=== PATIENT | male | born 1950 | race Caucasian/White ===

== ENCOUNTER 2016-07-17 10:53 | Observation (INO) ==
[2016-07-17] MEDS ORDERED: methylPREDNISolone 125 MG/2 ML VIAL IVP ONE (11:18)
[2016-07-17] MEDS ORDERED: Ipratropium/Albuterol Neb 3 ML IH ONE (11:18)
--- NOTE | 2016-07-17 11:19 | Emergency Department Note ---
Disposition Clinical Impression: Atrial fibrillation with RVR, Elevated troponin I level, Acute on chronic respiratory failure with hypoxia, COPD exacerbation, Parotitis, acute Lung cancer Qualifiers: Laterality: left Lung location: unspecified part of lung Qualified Code(s): C34.92 - Malignant neoplasm of unspecified part of left bronchus or lung Disposition: Admitted As Inpatient Condition: Serious Time of Disposition: 14:58 Chest Pain HPI - General Chief Complaint: ED Chest Pain Stated Complaint: chest pain, TONY Time Seen by Provider: 07/17/16 11:02 Source: family Mode of arrival: ambulatory Limitations: no limitations, physical limitation Vital Signs Reviewed: Yes Nursing Notes Reviewed: Yes - History of Present Illness HPI Narrative: 66yom Male history of lung cancer, also has a history of prostate cancer, has chronic respiratory failure chronically on 4 L oxygen nasal cannula, presents with chest pain, states he is pain worse with deep breaths. Patient is on 4 L of oxygen at all time is hard to oxygen. Patient states that he has also had several episodes of hemoptysis for last few weeks. 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 He also has atrial fibrillation. Patient is very tenuous, he states that he is a DNR CCA, would be agreeable to IV medications and IV antibiotics or BiPAP if needed. Also Dr. 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 and not tolerating chemotherapy at this time, with plans to continue in the next month or so Patient reports weight loss, intermittent subjective fevers, nausea, vomiting, diarrhea, constipation he denies vomiting, hematuria dysuria hematochezia or melena Pt complaint: chest pain Onset (ago): day(s) (1) Duration: intermittent Onset: during exertion Pain Location: substernal Severity: moderate Severity scale (1-10): 10 Quality: aching Pain Radiation: none Improves with: nothing Worsens with: nothing Associated symptoms: Reports: other (Right facial swelling) Treatments prior to arrival chest pain: none - Related Data Home Medications Medication Instructions Recorded Confirmed Ipratropium/Albuterol Neb [Duoneb] 3 ml IH Q6HR 03/14/15 07/17/16 Budesonide/Formoterol 160/4.5 2 puff IH BIDR 04/17/16 07/17/16 [Symbicort 160/4.5] Oxygen 3 l .ROUTE AD 04/17/16 07/17/16 Umeclidinium [place] [Incruse 1 puff IH BID 04/17/16 07/17/16 Ellipta] Amiodarone [Cordarone] 200 mg PO DAILY 07/17/16 07/17/16 Previous Rx's Medication Instructions Recorded Magic Mouthwash 5 ml PO Q4H PRN #240 ml 12/30/15 Ondansetron HCl [Zofran] 4 mg PO Q6HR PRN #20 tablet 12/30/15 OxyCODONE ER (12 HR) [OxyCONTIN] 20 mg PO QID PRN #20 tab.er.12h 04/21/16 OxyCODONE Immed Rel [Roxicodone 5 10 mg PO Q4H PRN #24 tablet 04/21/16 MG] Rivaroxaban [Xarelto] 20 mg PO DAILY 30 Days 05/13/16 Supplies [SUPPLIES] 1 each .ROUTE DAILY #1 each 05/18/16 PredniSONE 10 mg PO DAILY #9 tablet 05/25/16 Sennosides [Senna] 8.6 mg PO DAILY #20 tablet 05/25/16 Albuterol Sulfate [Ventolin Hfa] 1 puff IH Q6H PRN #1 hfa.aer.ad 07/07/16 Allergies Allergy/AdvReac Type Severity Reaction Status Date / Time levofloxacin [From Levaquin] AdvReac Nausea Verified 07/17/16 10:58 Review of Systems: A 14 point ROS was obtained and was negative except as per below or as documented in the HPI. Constitutional: Denies: fever, chills, weakness, weight change Eyes: Denies: eye pain, eye discharge, vision change ENT: Denies: ear pain, throat pain, hearing loss, epistaxis, congestion, Cardiovascular: chest pain Denies: , palpitations, dyspnea on exertion, edema, syncope Respiratory: cough, dyspnea, wheezes, hemoptysis,Denies: stridor Gastrointestinal: Denies: abdominal pain, nausea, vomiting. diarrhea, constipation, hematemesis, hematochezia Genitourinary: Denies: urgency, dysuria, frequency, hematuria Musculoskeletal: Denies: back pain, neck pain, arthralgia, myalgia Integumentary: Denies: rash, abrasion, lesions Neurological: Denies: headache, weakness, numbness, paresthesias, confusion, abnormal gait Psychiatric: Denies: anxiety, depression, suicidal thoughts, homicidal thoughts , Endocrine: Denies: fatigue Hematological/Lymphatic: Denies: easy bleeding, easy bruising Allergic/Immunologic: Denies: facial swelling, urticaria All systems ED: reviewed and negative except as stated. Chest Pain PMH - Past Medical History Medical history: Reports: arthritis, atrial fibrillation, cancer, COPD, GERD, hyperlipidemia, hypertension, malignancy, osteoporosis, peripheral artery disease, syncope, other Surgical history: Reports: cancer surgery, other Psychiatric history: Reports: no psych history - Social History Smoking Status: Former smoker Alcohol use: Reports: none Drug use: Reports: none Physical Exam General: Thin cachectic male in mild respiratory distress Head: NCAT, no lesions Eyes: sclera anicteric, conjunctiva normal, PERRLA bilaterally, EOMI Bilaterally Ears: normal inspection, external ear wnl Nose: nasal septum nondeviated, sinuses nontender Throat: good dentition, mucous membranes moist Face: Mild right parotid swelling with no palpable sialolith Neck: no lymphadenopathy, trachea midline no deviation, no JVD Resp: Coarse breath sounds bilaterally, diminished sounds of the left greater than right CV: Tachycardia normal S1 and S2, no m/g/r, Pulses +2 Rad, +2 DP/PT Abdomen: Soft, NTND, no hepatosplenomegaly, no hernias, Negative Rovsing's sign , Negative Jurado's sign Back: normal inspection, no tenderness to palpation, Negative CVA tenderness bilaterally Neuro: A&O3, CN II-XII grossly intact bilaterally, no motor or sensory deficits bilaterally, gait normal, GCS 15 [id number] Ext: normal inspection, symmetric Active and Passive ROM UE and LE bilaterally , no pedal edema bilaterally Psych: normal mood, normal affect Skin: No rashes, skin warm, dry, intact - General Limitations: physical limitation General appearance: alert, in no apparent distress Course Course Narrative: 66-year-old male anticoagulated on Xarelto, presents with hemoptysis and chest pain, concern for PE also concern for angina, no evidence of ST segment changes on his EKG, incomplete right bundle branch block and sinus tachycardia, will do chest pain workup, CT chest indicated. - Reevaluation(s) Reevaluation #1: CTA is ordered given good renal function, he does have a troponin of 0.04, he is compensated for respiratory acidosis on his blood gas, is currently sided on his home oxygen of 4 L. Time: 12:11 Reevaluation #2: Admitted to Dr Carrion for Afib Rvr fluid blus holding antiarrhthmics at hospitalist request prior to fluid bolus, no anticoagulation as well given on Xarelto with hemoptysis, A. fib RVR elevated troponin and chest pain. In stable condition currently heart rate 150s, blood pressure 108/70 patient's main complaint is requiring home pain medication and did order his oxycodone. Time: 15:04 Vital Signs Temperature 98.3 F 07/17/16 10:58 Pulse Rate 96 07/17/16 10:58 Respiratory Rate 18 07/17/16 10:58 Blood Pressure 106/75 07/17/16 10:58 O2 Sat by Pulse Oximetry 100 07/17/16 10:58 Temperature 98.3 F 07/17/16 10:58 Pulse Rate 127 07/17/16 15:32 Respiratory Rate 18 07/17/16 15:44 Blood Pressure 93/64 07/17/16 15:44 O2 Sat by Pulse Oximetry 99 07/17/16 15:32 Oxygen Delivery Oxygen Delivery Nasal Cannula Chest Pain - MDM Narrative Medical decision making narrative: 66-year-old male with A. fib RVR, cancer history, elevated troponin, admitted for chest pain rule out as well as trending troponins and rate control. - Differential Diagnosis Likely: pneumothorax, unstable angina pectoris, atypical chest pain, st elevation myocardial infraction, chest pain - Medical Records Medical records reviewed: Yes I reviewed the patient's medical records. - Lab Data Lab results reviewed: Yes I reviewed the patient's lab results. Result diagrams: 07/17/16 11:24 07/17/16 11:24 Lab Results 07/17/16 07/17/16 07/17/16 Range/Units 11:24 11:24 11:24 WBC (4.3-11.1) K/mcL RBC (4.19-5.50) M/mcL Hgb (12.9-16.9) g/dL Hct (37.5-50.1) % MCV (83.0-100.0) fL MCH (28.0-33.3) pg MCHC (31.6-35.5) g/dL RDW (11.5-14.5) % Plt Count (140-400) K/mcL MPV (9.4-12.4) fL Immature Gran % (0-4) % Seg Neutrophils % % Lymphocytes % % Monocytes % % Eosinophils % % Basophils % % Neutrophils # (1.6-8.9) K/mcL Lymphocytes # (0.6-4.6) K/mcL Monocytes # (0.0-1.3) K/mcL Eosinophils # (0.0-0.6) K/mcL Basophils # (0.0-0.2) K/mcL PT 16.0 H (9.4-12.1) Seconds INR 1.5 APTT 32.1 (26.0-36.0) Seconds ABG pH (7.32-7.45) pH Units ABG pCO2 (35-45) mmHg ABG pO2 (85-104) mmHg ABG HCO3 (21-27) mEQ/L ABG Total CO2 (20-26) mEq/L ABG O2 Saturation (95-98) % ABG Base Excess (-2.0 to 3.0) mEq/L Blood Gas Modality Inspired O2 % Sodium (136-145) mEq/L Potassium (3.5-4.5) mEq/L Chloride (98-109) mEq/L Carbon Dioxide (19-29) mEq/L BUN (8-26) mg/dL Creatinine (0.72-1.25) mg/dL Est GFR ( Amer) (> 60) Est GFR (Non-Af Amer) (> 60) BUN/Creatinine Ratio (6-26) Glucose (70-99) mg/dL Calculated Osmolality (280-300) Calcium (8.6-10.8) mg/dL Total Bilirubin 0.5 (0.2-1.2) mg/dL Direct Bilirubin 0.2 (0.0-0.5) mg/dL Indirect Bilirubin 0.3 (0.0-1.2) mg/dL AST 16 (5-34) Units/L ALT 12 (0-55) Units/L Alkaline Phosphatase 103 (38-126) Units/L Troponin I (0-0.03) ng/mL B-Natriuretic Peptide 98 (0-100) pg/mL Serum Total Protein 7.5 (6.0-8.3) g/dL Albumin 3.1 L (3.5-5.0) g/dL Globulin 4.4 H (2.4-3.5) g/dL Albumin/Globulin Ratio 0.7 L (1.1-2.2) Lipase 9 (8-78) Units/L 07/17/16 07/17/16 07/17/16 Range/Units 11:24 11:24 11:24 WBC 8.7 (4.3-11.1) K/mcL RBC 3.58 L (4.19-5.50) M/mcL Hgb 11.2 L (12.9-16.9) g/dL Hct 34.5 L (37.5-50.1) % MCV 96.4 (83.0-100.0) fL MCH 31.3 (28.0-33.3) pg MCHC 32.5 (31.6-35.5) g/dL RDW 14.7 H (11.5-14.5) % Plt Count 359 (140-400) K/mcL MPV 8.6 L (9.4-12.4) fL Immature Gran % 0.5 (0-4) % Seg Neutrophils % 79.3 % Lymphocytes % 7.3 % Monocytes % 10.9 % Eosinophils % 1.7 % Basophils % 0.3 % Neutrophils # 6.9 (1.6-8.9) K/mcL Lymphocytes # 0.6 (0.6-4.6) K/mcL Monocytes # 1.0 (0.0-1.3) K/mcL Eosinophils # 0.2 (0.0-0.6) K/mcL Basophils # 0.0 (0.0-0.2) K/mcL PT (9.4-12.1) Seconds INR APTT (26.0-36.0) Seconds ABG pH (7.32-7.45) pH Units ABG pCO2 (35-45) mmHg ABG pO2 (85-104) mmHg ABG HCO3 (21-27) mEQ/L ABG Total CO2 (20-26) mEq/L ABG O2 Saturation (95-98) % ABG Base Excess (-2.0 to 3.0) mEq/L Blood Gas Modality Inspired O2 % Sodium 135 L (136-145) mEq/L Potassium 4.3 (3.5-4.5) mEq/L Chloride 95 L (98-109) mEq/L Carbon Dioxide 27 (19-29) mEq/L BUN 11 (8-26) mg/dL Creatinine 0.78 (0.72-1.25) mg/dL Est GFR ( Amer) > 60 (> 60) Est GFR (Non-Af Amer) > 60 (> 60) BUN/Creatinine Ratio 14 (6-26) Glucose 83 (70-99) mg/dL Calculated Osmolality 279 L (280-300) Calcium 9.5 (8.6-10.8) mg/dL Total Bilirubin (0.2-1.2) mg/dL Direct Bilirubin (0.0-0.5) mg/dL Indirect Bilirubin (0.0-1.2) mg/dL AST (5-34) Units/L ALT (0-55) Units/L Alkaline Phosphatase (38-126) Units/L Troponin I 0.04 H* (0-0.03) ng/mL B-Natriuretic Peptide (0-100) pg/mL Serum Total Protein (6.0-8.3) g/dL Albumin (3.5-5.0) g/dL Globulin (2.4-3.5) g/dL Albumin/Globulin Ratio (1.1-2.2) Lipase (8-78) Units/L 07/17/16 Range/Units 11:40 WBC (4.3-11.1) K/mcL RBC (4.19-5.50) M/mcL Hgb (12.9-16.9) g/dL Hct (37.5-50.1) % MCV (83.0-100.0) fL MCH (28.0-33.3) pg MCHC (31.6-35.5) g/dL RDW (11.5-14.5) % Plt Count (140-400) K/mcL MPV (9.4-12.4) fL Immature Gran % (0-4) % Seg Neutrophils % % Lymphocytes % % Monocytes % % Eosinophils % % Basophils % % Neutrophils # (1.6-8.9) K/mcL Lymphocytes # (0.6-4.6) K/mcL Monocytes # (0.0-1.3) K/mcL Eosinophils # (0.0-0.6) K/mcL Basophils # (0.0-0.2) K/mcL PT (9.4-12.1) Seconds INR APTT (26.0-36.0) Seconds ABG pH 7.44 (7.32-7.45) pH Units ABG pCO2 50 H (35-45) mmHg ABG pO2 137 H (85-104) mmHg ABG HCO3 34.0 H (21-27) mEQ/L ABG Total CO2 35.5 H (20-26) mEq/L ABG O2 Saturation 99 H (95-98) % ABG Base Excess 8.6 H (-2.0 to 3.0) mEq/L Blood Gas Modality HFNC Inspired O2 52 % Sodium (136-145) mEq/L Potassium (3.5-4.5) mEq/L Chloride (98-109) mEq/L Carbon Dioxide (19-29) mEq/L BUN (8-26) mg/dL Creatinine (0.72-1.25) mg/dL Est GFR ( Amer) (> 60) Est GFR (Non-Af Amer) (> 60) BUN/Creatinine Ratio (6-26) Glucose (70-99) mg/dL Calculated Osmolality (280-300) Calcium (8.6-10.8) mg/dL Total Bilirubin (0.2-1.2) mg/dL Direct Bilirubin (0.0-0.5) mg/dL Indirect Bilirubin (0.0-1.2) mg/dL AST (5-34) Units/L ALT (0-55) Units/L Alkaline Phosphatase (38-126) Units/L Troponin I (0-0.03) ng/mL B-Natriuretic Peptide (0-100) pg/mL Serum Total Protein (6.0-8.3) g/dL Albumin (3.5-5.0) g/dL Globulin (2.4-3.5) g/dL Albumin/Globulin Ratio (1.1-2.2) Lipase (8-78) Units/L - Radiology Data Radiology results reviewed: Yes I reviewed the patient's radiology results. Chest X-Ray 07/17/16 11:10 IMPRESSION: Stable chest with perihilar opacity/scarring. Chronic interstitial lung changes, stable. D/ / Ozzie Gracia MD / Ozzie Gracia MD Interpreting Provider: Ozzie Gracia MD Chest CTA 07/17/16 12:04 IMPRESSION: 1. No evidence of pulmonary embolism or other acute abnormality in the chest. 2. 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 3. Small left pleural effusion. D/ / Masoud Rivera MD / Masoud Rivera MD Interpreting Provider: Masoud Rivera MD - EKG Data EKG attestation: Yes I reviewed and interpreted this EKG. EKG shows normal: sinus rhythm (97 bpm NV 160 QRS 116 QTC 397 nauseous and elevations or depressions) [place]/QRS: RBBB Interpretation: no acute changes, unchanged when compared to prior tracing (date ) (Unchanged when compared to previous EKG on ) - Core Measures AMI Core Measures Followed: No Measure Exclusions: contraindicated (On Xarelto, with Hmeoptysis) Heart Score - Score History: Slightly Suspicious EKG: Normal Age: 45-65 Risk Factors: Equal/Greater than 3 risk factor or history of atherosclerotic disease Troponin: Less than normal limit HEART Score Total: 3 Attestation Statement - Attestation Attestation: I examined this patient and my medical decision-making was reviewed with the CLINIC CLERK/PA/Advanced Practice Nurse/Resident Physician. I agree with the documented findings, disposition and treatment plan as described except to the extent set forth below. 66-year-old male presents ED because of chest pain, palpitations, dyspnea and right-sided facial swelling. Chest pain and dyspnea began yesterday and is having increasing swelling of the right face today. No associated fever. Does complain of hemoptysis. Patient does have history of lung cancer as well as non -metastatic prostate cancer. Currently undergoing treatments but no treatment for the last 7 days. He has had a cough slightly productive. No abdominal pain or vomiting. No recent trauma. No recent change in medications. History of atrial fibrillation as well as DVT of the right upper extremity. Currently on Xarelto Patient is intermittently tachycardic and appears uncomfortable. Oropharynx extremities warm and dry. Neck is supple trachea midline. No JVD. Chest scattered inspiratory rhonchi. No focal wheezing. No focal consolidation. Left anterior chest wall is tender to palpation. Cardiac exam regular with occasional ectopy. Abdomen soft nondistended and nontender. Extremities warm and dry. No asymmetric edema. He does have mildly painful swelling of the right parotid with overlying erythema consistent with acute parotitis. Stensen' s duct was identified and I was not able to identify any purulent drainage or any stones within the duct. Patient had periods of atrial fibrillation with rapid ventricular response with rate running up to as high as 160. This was intermittent and he reverted back to normal sinus rhythm. CT was chest was negative for pulmonary embolism. He has mild elevation of his troponin PCO2 is chronically elevated Erythema over the right parotid seemed to improve during his time in the ED. After IV fluids and his heart rate improved and he had fewer episodes of atrial fibrillation. He is admitted for ongoing IV hydration. He will continue with cardiac monitoring, serial troponins, treatment of his pain The high probability of a clinically significant, sudden or life threatening deterioration of the [cardiopulmonary] system(s) required my full and direct attention, intervention and personal management. The aggregate critical care time was [35] minutes. This time is in addition to time spent performing reported procedures but includes the following: [x] Data Review and interpretation [x] Patient assessment and monitoring of vital signs [x] Documentation [x] Medication orders and management
[2016-07-17 11:32] LABS: Basophils % 0.3 %; Eosinophils # 0.2 K/mcL (0.0-0.6); Eosinophils % 1.7 %; Hematocrit 34.5 % (37.5-50.1); Hemoglobin 11.2 g/dL (12.9-16.9); Immature Granulocytes % 0.5 % (0-4); Lymphocytes # 0.6 K/mcL (0.6-4.6); Lymphocytes % 7.3 %; Mean Corpuscular HGB Conc 32.5 g/dL (31.6-35.5); Mean Corpuscular Hemoglobin 31.3 pg (28.0-33.3); Mean Corpuscular Volume 96.4 fL (83.0-100.0); Mean Platelet Volume 8.6 fL (9.4-12.4); Monocytes % 10.9 %; Neutrophils # 6.9 K/mcL (1.6-8.9); Platelet Count 359 K/mcL (140-400); Red Blood Count 3.58 M/mcL (4.19-5.50); Red Cell Distribution Width 14.7 % (11.5-14.5); Segmented Neutrophils % 79.3 %
[2016-07-17] MEDS ORDERED: *HR* HYDROmorphone (PF) 1 MG/ML SYRINGE IVP ONE ×2 (11:32→13:55)
[2016-07-17 11:40] LABS: INR 1.5
[2016-07-17 11:42] LABS: Activated Partial Thrombo Time 32.1 Seconds (26.0-36.0)
[2016-07-17 11:46] LABS: BUN/Creatinine Ratio 14 (6-26); Blood Urea Nitrogen 11 mg/dL (8-26); Calcium 9.5 mg/dL (8.6-10.8); Carbon Dioxide 27 mEq/L (19-29); Chloride 95 mEq/L (98-109); Glucose 83 mg/dL (70-99); Osmolality,Calculated 279 (280-300); Potassium 4.3 mEq/L (3.5-4.5); Sodium 135 mEq/L (136-145); eGFR For African Americans > 60 (> 60); eGFR For Non-African Americans > 60 (> 60)
[2016-07-17 11:47] LABS: Albumin 3.1 g/dL (3.5-5.0); Albumin/Globulin Ratio 0.7 (1.1-2.2); Bilirubin,Direct 0.2 mg/dL (0.0-0.5); Bilirubin,Indirect 0.3 mg/dL (0.0-1.2); Bilirubin,Total 0.5 mg/dL (0.2-1.2); Globulin 4.4 g/dL (2.4-3.5); Total Protein 7.5 g/dL (6.0-8.3)
[2016-07-17 11:50] LABS: ABG Base Excess 8.6 mEq/L (-2.0 to 3.0); ABG Oxygen Saturation 99 % (95-98); ABG PCO2 50 mmHg (35-45); ABG PH 7.44 pH Units (7.32-7.45); ABG PO2 137 mmHg (85-104); ABG TCO2 35.5 mEq/L (20-26)
[2016-07-17 11:52] LABS: Blood Gas FiO2 52 %
[2016-07-17] MEDS ORDERED: *HR* FentaNYL (PF) 100 MCG/2 ML VIAL IVP ONE (12:38)
[2016-07-17] MEDS ORDERED: 0.9 % Sodium Chloride 1,000 ML IV ONE (13:21)
[2016-07-17] MEDS ORDERED: Amiodarone Premix 360 MG/200 ML BAG IVC ONE (13:29)
[2016-07-17] MEDS ORDERED: Naloxone 0.4 MG/ML INJ IVP PRN (17:22)
[2016-07-17] MEDS ORDERED: Ondansetron 4 MG/2 ML VIAL IVP PRN (17:22)
[2016-07-17] MEDS ORDERED: Ondansetron ODT 4 MG TAB.RAPDIS PO PRN (17:27)
[2016-07-17] MEDS ORDERED: *HR* OxyCODONE ER (12 HR) 20 MG TABLET PO SCH ×2 (17:27→21:00)
[2016-07-17] MEDS ORDERED: Magic Mouthwash 10 ML UD Cup PO PRN (17:27)
--- NOTE | 2016-07-17 18:16 | Internal Med History&Physical ---
Date of Encounter: 07/17/16 Time of Encounter: 17:00 Assessment and Plan (1) Chest pain Current visit: Yes Status: Acute 1 patient experiencing chest pain upon inspiration. Pain is reproducible by palpation. Suspect related to cancer pain. Cardiac echo May 2016 with EF 50% with mild diastolic dysfunction CT of chest is negative for PE EKG unchanged from previous First set of cardiac troponins 0.04 we will continue to cycle 2 continue his cardiac monitoring 3 continue with pain medications 4 consult cardiology as needed (2) Elevated troponin I level Current visit: Yes Status: Acute 1 suspect this is demand ischemia from A. fib RVR. We will continue to cycle cardiac troponins 2 continuous cardiac monitoring 3 continue with amiodarone 4 consult cardiology as needed (3) Atrial fibrillation with RVR Current visit: Yes Status: Acute 1 patient presented to the ER in atrial fib RVR with heart rate of 135. He was given IV fluids and rate resolved. Return to sinus tachycardia 90-100 Patient was experiencing chest pain cardiac troponin 0.04 we will continue cycle troponins 2 patient does have history of A. fib we will continue xareltol, as well as amiodarone. Patient reports poor response to Cardizem in the past 3 we will check TSH (4) COPD (chronic obstructive pulmonary disease) Current visit: No Status: Chronic 1 weight stable no wheezing noted will continue with oxygen maintain SPO2 greater than 92% 2 continue with bronchodilators Qualifiers: COPD type: emphysema Emphysema type: unspecified Qualified Code(s): J43.9 - Emphysema, unspecified (5) Non-small cell cancer of left lung Current visit: No Status: Chronic 1 patient is being followed by Dr. Charles. His last radiation was an January chemotherapy is on hold for now. We will continue with patient's pain regime consult oncology for management (6) Prostate cancer Current visit: No Status: Chronic 1 patient is being followed by Dr. Manrique. We will continue with follow-up and consult for continued treatment. Presently the patient denies any hematuria or urinary retention. (7) Arterial occlusion Current visit: Yes Status: Acute 1 patient did have arterial occlusion and had a thrombectomy of right ulnar artery on July 02 at [facility]. He is resumed on Xarelto 20 mg (8) DVT prophylaxis Current visit: Yes Status: Acute Patient is on Xarelto Internal Medicine - H&P: HPI Admitted From: Home Plans for Post Hospital Care: Home History of present illness: Mr. Myers is a 66 year old male with past medical history of atrial fibrillation not on small cell carcinoma 1 prostate cancer anemia COPD hypertension. The GERD hyperlipidemia DVT. The patient has extensive history with lung CA as well as prostate is presently not undergoing any chemotherapy or radiation due to increased scarring. His last radiation treatment was in January and he is being reevaluated by oncology in order to resume chemotherapy. He has been experiencing hemoptysis and is on Zarontin L. He had his Route toe dose reduced and the patient developed a DVT in right arm. He had a thrombectomy in 07/02/2016 and Zarontin dose was restarted at full strength. According to patient he has been in his usual state of health and actually was feeling very well yesterday however, this morning the patient was awakened with midsternal nonradiating pain which she described as heaviness. Pain is worse upon inspiration and movement there are no relieving factors. He has chronic nausea shortness of breath and lightheadedness he also continuous oxygen at 4 L nasal cannula at home. He denies any hematuria, hematochezia or melena hematemesis fevers chills abdominal pain diarrhea vomiting or palpitations. He is brought to the emergency department for evaluation. According to ER records upon presentation the patient's heart rate was 137 sinus tachycardia. EKG revealed no ST changes and incomplete right bundle branch block which was unchanged from previous EKG. Due to history of hemoptysis and chest pain there is concerned for PE CTA was completed and it was negative his troponin was 0.04. He was given fluid bolus as well as pain medication. He was admitted for further workup and evaluation concerning chest pain. Presently the patient is a sinus tach on the monitor with a rate of 107 saturation is 97% on 4 L nasal cannula. He complains of chest heaviness which is reproducible by palpation. He is requesting his pain medication and coffee. At present time patient is hemodynamically stable Past Med Surg Social Fam HX - Past Medical History Medical history: arthritis, atrial fibrillation, cancer, COPD, GERD, hyperlipidemia, hypertension, malignancy, osteoporosis, peripheral artery disease, syncope, other Psychiatric history: no psych history - Past Surgical History Surgical History: cancer surgery, other - Social History Smoking Status: Former smoker Smokeless Tobacco Status: No Alcohol use: none Drug use: none - Family History Mother Name: Bee Campbell Age: 51 Family Member Ethnicity: Non- Living Status: Age at : 51 Cause of : colon cancer Hx Family Cardiac Disorders: Yes (FATHER OF HEART DISEASE) Hx Family Respiratory Disorders: Yes (SISTER WITH COPD/CURRENT SMOKER) Hx Family Cancer: Yes Hx Family GI Disorders: No Hx Family Endocrine Disorder: Yes (BROTHER AGE 56 OF PANCREATIC CANCER) Hx Family Neuromuscular Disorders: No Hx Family Neurologic Disorders: No Hx Family HEENT Disorders: No Hx Family Autoimmune Disorders: No Internal Medicine - H&P: Meds Ipratropium/Albuterol Neb [Duoneb] 3 ml IH Q6HR 03/14/15 [History] Magic Mouthwash 5 ml PO Q4H PRN #240 ml 12/30/15 [Rx] Ondansetron HCl [Zofran] 4 mg PO Q6HR PRN #20 tablet 12/30/15 [Rx] Budesonide/Formoterol 160/4.5 [Symbicort 160/4.5] 2 puff IH BIDR 04/17/16 [ History] Oxygen 3 l .ROUTE AD 04/17/16 [History] Umeclidinium [place] [Incruse Ellipta] 1 puff IH BID 04/17/16 [History] OxyCODONE ER (12 HR) [OxyCONTIN] 20 mg PO QID PRN #20 tab.er.12h 04/21/16 [Rx] OxyCODONE Immed Rel [Roxicodone 5 MG] 10 mg PO Q4H PRN #24 tablet 04/21/16 [Rx] Rivaroxaban [Xarelto] 20 mg PO DAILY 30 Days 05/13/16 [Rx] Supplies [SUPPLIES] 1 each .ROUTE DAILY #1 each 05/18/16 [Rx] PredniSONE 10 mg PO DAILY #9 tablet 05/25/16 [Rx] Sennosides [Senna] 8.6 mg PO DAILY #20 tablet 05/25/16 [Rx] Albuterol Sulfate [Ventolin Hfa] 1 puff IH Q6H PRN #1 hfa.aer.ad 07/07/16 [Rx] Amiodarone [Cordarone] 200 mg PO DAILY 07/17/16 [History] Allergies levofloxacin [From Levaquin] Adverse Reaction (Verified 07/17/16 10:58) Nausea All Systems PM: A 10-system review of systems was performed and is negative for pertinent findings except as documented above in the HPI. - Constitutional Constitutional: lethargy, weakness - Cardiovascular Cardiovascular ROS IM: chest pain, dyspnea, lightheadedness - Respiratory Respiratory: cough, dyspnea, hemoptysis - Gastrointestinal Gastrointestinal: constipation, nausea, no abdominal pain, no diarrhea, no hematemesis, no hematochezia, no melena, no vomiting - Genitourinary Genitourinary ROS male: urinary hesitancy - Neurological Neurological ROS: no confusion, no convulsions, no focal weakness, no numbness, no tingling, no tremor(s) - Constitutional Vitals: Temp Pulse Resp BP Pulse Ox 97.6 F 137 17 111/67 94 L 07/17/16 16:26 07/17/16 16:26 07/17/16 16:26 07/17/16 16:26 07/17/16 16:30 General appearance: Present: A&O X 3, pleasant - Head Head exam: Present: atraumatic, normocephalic - Neck Neck exam general surgery: Present: supple, trachea midline. Absent: lymphadenopathy - Respiratory Respiratory exam: Present: decreased breath sounds, CTAB. Absent: accessory muscle use, rales, rhonchi, wheezes - Cardiovascular Cardiovascular exam: Present: RRR, +S1, +S2. Absent: diastolic murmur, gallop, rubs, systolic murmur - GI/Abdominal GI/Abdominal exam: Present: normal bowel sounds, soft, no peritoneal signs. Absent: distended, tenderness - Extremities Exam Extremities exam: Present: warm, radial pulses palpable and symetrical. Absent : calf tenderness, cyanotic, pedal edema - Neurological Exam Neurological exam: Present: CN II-XII intact, oriented X3, no focal deficits. Absent: pronater drift, facial droop, speech deficit - Skin Skin exam: Present: dry, intact Internal Med - H&P Results - Labs CBC & Chem 7: 07/17/16 11:24 07/17/16 11:24 - EKG Data EKG shows normal: sinus rhythm Rate: tachycardia - EKG Data Prior EKG available for review: yes When compared to previous EKG: there is no significant change - Diagnostic Studies CT scan - chest Additional comments: Per radiology read CTA of chest no evidence of PE Chest x-ray Additional comments: Per radiology read chest x-ray stable with perihilar opacity and scarring Chronic interstitial changes
[2016-07-17] MEDS: *HR* Rivaroxaban 10 MG TABLET PO SCH (18:19)
[2016-07-17] MEDS: *HR* OxyCODONE Immed Rel 5 MG TABLET PO PRN (18:19)
[2016-07-17] MEDS: Budesonide/Formoterol 160/4.5 MDI IH SCH (21:09)
[2016-07-17] MEDS: INCRUSE ELLIPTA IH SCH (21:09)
[2016-07-17] MEDS: Ipratropium/Albuterol Neb 3 ML IH SCH ×2 (21:09→23:19)
[2016-07-18 00:50] LABS: Hematocrit 30.5 % (37.5-50.1); Hemoglobin 10.1 g/dL (12.9-16.9); Immature Granulocytes % 0.7 % (0-4); Lymphocytes # 0.3 K/mcL (0.6-4.6); Lymphocytes % 3.3 %; Mean Corpuscular HGB Conc 33.1 g/dL (31.6-35.5); Mean Corpuscular Hemoglobin 31.8 pg (28.0-33.3); Mean Corpuscular Volume 95.9 fL (83.0-100.0); Mean Platelet Volume 8.8 fL (9.4-12.4); Monocytes # 0.3 K/mcL (0.0-1.3); Monocytes % 3.7 %; Platelet Count 348 K/mcL (140-400); Red Blood Count 3.18 M/mcL (4.19-5.50); Red Cell Distribution Width 14.7 % (11.5-14.5); Segmented Neutrophils % 92.3 %
[2016-07-18 01:02] LABS: BUN/Creatinine Ratio 19 (6-26); Blood Urea Nitrogen 14 mg/dL (8-26); Carbon Dioxide 24 mEq/L (19-29); Chloride 97 mEq/L (98-109); Glucose 130 mg/dL (70-99); Osmolality,Calculated 278 (280-300); Potassium 4.6 mEq/L (3.5-4.5); Sodium 133 mEq/L (136-145); eGFR For African Americans > 60 (> 60); eGFR For Non-African Americans > 60 (> 60)
[2016-07-18] MEDS: Ipratropium/Albuterol Neb 3 ML IH SCH ×4 (04:48→22:34)
[2016-07-18] MEDS: INCRUSE ELLIPTA IH SCH (07:25)
[2016-07-18] MEDS: *HR* OxyCODONE Immed Rel 5 MG TABLET PO PRN ×2 (07:28→19:43)
[2016-07-18] MEDS ORDERED: predniSONE 10 MG TABLET PO SCH (09:00)
[2016-07-18] MEDS: Sennosides 8.6 MG TABLET PO SCH (09:17)
[2016-07-18] MEDS: *HR* Amiodarone 200 MG TABLET PO SCH (09:17)
[2016-07-18] MEDS: *HR* OxyCODONE ER (12 HR) 20 MG TABLET PO SCH ×2 (10:02→23:08)
[2016-07-18] MEDS: Budesonide/Formoterol 160/4.5 MDI IH SCH ×2 (10:28→22:34)
--- NOTE | 2016-07-18 13:11 | Electrocardiograph Report ---
[facility] Test Date: 2016-07-17 Pat Name: Tuan Myers Department: 103 Room: 2NE28 Gender: M Structures Engineer: MSC : [id number] Requested By: Sarthak Fam Order Number: [id number] Reading MD: Colton Rees MD Measurements Intervals [place] Rate: 97 P: 81 WA: 160 QRS: 34 QRSD: 116 T: 74 QT: 343 QTc: 397 Interpretive Statements SINUS RHYTHM INCOMPLETE RIGHT BUNDLE BRANCH BLOCK Electronically Signed On 07-18-16 13:10:23 EST by Colton Rees MD
--- NOTE | 2016-07-18 14:18 | Internal Med Progress Note ---
Date of Encounter: 07/18/16 Time of Encounter: 10:00 - Assessment and plan (1) COPD exacerbation Current Visit: Yes Status: Acute Assessment and plan: stat IV steroids med nebs antibiotics (2) Lung cancer Current Visit: Yes Status: Chronic Assessment and plan: squamous cell CA poor response to treatment , overall bad prognosis will consult palliative carel Qualifiers: Laterality: left Lung location: unspecified part of lung Qualified Code(s ): C34.92 - Malignant neoplasm of unspecified part of left bronchus or lung (3) Afib Current Visit: Yes Status: Chronic Assessment and plan: parosimal now on SR rate better control on xarelto for AC Qualifiers: Qualified Code(s): I48.91 - Unspecified atrial fibrillation (4) Bronchial stenosis, left Current Visit: Yes Status: Acute Assessment and plan: in left lower lung not a candidate for stent due to location high risk for pneumothorax spoke with radiology incentive pulmonary toilette (5) Prostate cancer Current Visit: No Status: Chronic Assessment and plan: stage IV . - Time Spent With Patient Greater than 35 minutes - Subjective Interval history: pt c/o sob on exertion ocassional hemoptyisis - Constitutional Vitals: Temp Pulse Resp BP Pulse Ox 97.4 F L 77 20 111/59 100 07/18/16 07:19 07/18/16 07:19 07/18/16 10:28 07/18/16 07:19 07/18/16 10:28 General appearance: Present: A&O X 3, pleasant - Respiratory Respiratory exam: Present: wheezes - Cardiovascular Cardiovascular exam: Present: RRR, +S1, +S2 - GI/Abdominal GI/Abdominal exam: Present: normal bowel sounds, no peritoneal signs - Extremities Exam Extremities exam: Present: warm, radial pulses palpable and symetrical Internal Medicine: Result - Labs CBC & Chem 7: 07/18/16 00:37 07/18/16 00:37 Labs: Short CBC 07/18/16 Range/Units 00:37 WBC 7.5 (4.3-11.1) K/mcL Hgb 10.1 L (12.9-16.9) g/dL Hct 30.5 L (37.5-50.1) % Plt Count 348 (140-400) K/mcL Neutrophils # 7.0 (1.6-8.9) K/mcL BMP 07/18/16 00:37 Sodium 133 L Potassium 4.6 H Chloride 97 L Carbon Dioxide 24 BUN 14 Creatinine 0.72 Glucose 130 H Calcium 9.0 Cardiac Enzymes 07/17/16 07/18/16 Range/Units 19:23 00:37 Troponin I 0.02 0.02 (0-0.03) ng/mL - ABG Interpretation ABG results: ABG ABG pH 7.44 pH Units (7.32-7.45) 07/17/16 11:40 ABG pCO2 50 mmHg (35-45) H 07/17/16 11:40 ABG pO2 137 mmHg (85-104) H 07/17/16 11:40 ABG O2 Saturation 99 % (95-98) H 07/17/16 11:40 PT/INR, D-dimer PT 16.0 Seconds (9.4-12.1) H 07/17/16 11:24 Consult Discharge Plan - Plan Referrals: Jonathon Cruz MD [Primary Care Provider] - 07/26/16 2:00 pm
--- NOTE | 2016-07-18 16:15 | Palliative - Consult Note ---
Date of Encounter: 07/18/16 Time of Encounter: 16:00 - Assessment and Plan (1) Cancer associated pain Current Visit: Yes Status: Acute Assessment and plan: Continue with Oxycontin and Oxycodone for breakthrough pain. This has been effective for him. (2) Constipation due to opioid therapy Current Visit: Yes Status: Acute Assessment and plan: + BM yesterday. On Senokot daily. Add MOM daily PRN which pt states works well at home for him. (3) Nausea Current Visit: Yes Status: Acute Assessment and plan: Continue Zofran PRN. States occasional nausea, but not enough he has required medication for. (4) Counseling regarding advanced care planning and goals of care Current Visit: Yes Status: Acute Assessment and plan: D/W pt and , Diane. He has POA and living will completed. DNR/DNI - I asked if this is to continue post hospitalization, they need state form, and I gave them one to review and will f.u at 1100 tomorrow. He currently has multiple DME's at home and states she has everything she needs to care for him. He is to f/u with Dr. Parker later this month to see if he can take further chemotherapy. He does not even desire to discuss hospice care and states when they did a home visit to discuss, he became anxious and she had to take him to emergency room. We did discuss how hospice can be beneficial if there is no further treatment and they can help manage him at home and keep him out of hospital. He currently is enrolled in [facility] care, and these discussions would probably be best when he is back to home environment. Will f/u tomorrow at 1100. (5) Acute on chronic respiratory failure with hypoxia Current Visit: Yes Status: Acute (6) Atrial fibrillation with RVR Current Visit: Yes Status: Acute Palliative-CN HPI - Data of Consult Consult date: 07/18/16 Requesting Physician: Nils Houston MD Primary Care Provider: Jonathon Cruz MD - Consult Narrative History of present illness: Mr. Myers is a 66 year old male with a long history of cancer, - rt lung in 2013 s/p chemo and radiation, and diagnosed Left lung in 2012. He was also diagnosed and currently has stage IV prostate cancer. He is still receiving Lupron injections for this. States Dr. Parker giving him a break from chemotherapy as he was too weak to tolerate and was going to reassess later this month. Presented with hemoptysis and chest pain. Still coughing up teaspoon amount dk red blood occasionally. He also had a recent thrombectomy rt arm as well. See Dr. Sewell as outpatient and states he has end stage lung disease as well. Upon my visit, he is talkative and in no apparent distress, however, states he becomes hypoxic with any ambulation. at home and takes total care of him. There are also 2 sons living in the house. He receives [facility] palliative care. CC: Nils Houston MD Past Med Surg Social Fam HX - Past Medical History Medical history: arthritis, atrial fibrillation, cancer, COPD, GERD, hyperlipidemia, hypertension, malignancy, osteoporosis, peripheral artery disease, syncope, other Psychiatric history: no psych history - Past Surgical History Surgical History: cancer surgery, other - Social History Smoking Status: Former smoker Smokeless Tobacco Status: No Alcohol use: none Drug use: none - Family History Mother Name: Bee Campbell Age: 51 Family Member Ethnicity: Non- Living Status: Age at : 51 Cause of : colon cancer Hx Family Cardiac Disorders: Yes (FATHER OF HEART DISEASE) Hx Family Respiratory Disorders: Yes (SISTER WITH COPD/CURRENT SMOKER) Hx Family Cancer: Yes Hx Family GI Disorders: No Hx Family Endocrine Disorder: Yes (BROTHER AGE 56 OF PANCREATIC CANCER) Hx Family Neuromuscular Disorders: No Hx Family Neurologic Disorders: No Hx Family HEENT Disorders: No Hx Family Autoimmune Disorders: No Medications and Allergies Ipratropium/Albuterol Neb [Duoneb] 3 ml IH Q6HR 03/14/15 [History] Magic Mouthwash 5 ml PO Q4H PRN #240 ml 12/30/15 [Rx] Ondansetron HCl [Zofran] 4 mg PO Q6HR PRN #20 tablet 12/30/15 [Rx] Budesonide/Formoterol 160/4.5 [Symbicort 160/4.5] 2 puff IH BIDR 04/17/16 [ History] Oxygen 3 l .ROUTE AD 04/17/16 [History] Umeclidinium [place] [Incruse Ellipta] 1 puff IH BID 04/17/16 [History] OxyCODONE ER (12 HR) [OxyCONTIN] 20 mg PO QID PRN #20 tab.er.12h 04/21/16 [Rx] OxyCODONE Immed Rel [Roxicodone 5 MG] 10 mg PO Q4H PRN #24 tablet 04/21/16 [Rx] Rivaroxaban [Xarelto] 20 mg PO DAILY 30 Days 05/13/16 [Rx] Supplies [SUPPLIES] 1 each .ROUTE DAILY #1 each 05/18/16 [Rx] PredniSONE 10 mg PO DAILY #9 tablet 05/25/16 [Rx] Sennosides [Senna] 8.6 mg PO DAILY #20 tablet 05/25/16 [Rx] Albuterol Sulfate [Ventolin Hfa] 1 puff IH Q6H PRN #1 hfa.aer.ad 07/07/16 [Rx] Amiodarone [Cordarone] 200 mg PO DAILY 07/17/16 [History] Allergies levofloxacin [From Levaquin] Adverse Reaction (Verified 07/17/16 10:58) Nausea Review of systems: Weakness, dyspnea on exertion, chronic back pain, hemoptysis, constipation Palliative Care-Exam - Constitutional Vitals: Temp Pulse Resp BP Pulse Ox 98.8 F 76 16 110/59 98 07/18/16 15:42 07/18/16 15:42 07/18/16 15:42 07/18/16 15:42 07/18/16 15:42 General appearance: Present: no acute distress - Head Head Exam: Present: normal inspection, normocephalic - Eye Eye exam: Present: normal appearance, PERRL - Expanded Respiratory Exam Location: decreased breath sounds: Left, Right, Lower, rhonchi: Right, Upper - Cardiovascular Cardiovascular exam: Present: irregular rhythm - GI/Abdominal Exam GI/Abdominal exam: Present: normal bowel sounds, soft - Extremities Exam Extremities exam: Present: normal capillary refill, normal inspection - Neurological Exam Neurological exam: Present: alert, oriented X3, strengths equal and symetr throughout - Psychiatric Psychiatric exam: Present: anxious - Skin Skin exam: Present: dry, pallor, warm Internal Medicine - CN: Reslt - Labs CBC & Chem 7: 07/18/16 00:37 07/18/16 00:37 Labs: Short CBC 07/18/16 Range/Units 00:37 WBC 7.5 (4.3-11.1) K/mcL Hgb 10.1 L (12.9-16.9) g/dL Hct 30.5 L (37.5-50.1) % Plt Count 348 (140-400) K/mcL Neutrophils # 7.0 (1.6-8.9) K/mcL BMP 07/18/16 00:37 Sodium 133 L Potassium 4.6 H Chloride 97 L Carbon Dioxide 24 BUN 14 Creatinine 0.72 Glucose 130 H Calcium 9.0 Cardiac Enzymes 07/17/16 07/18/16 Range/Units 19:23 00:37 Troponin I 0.02 0.02 (0-0.03) ng/mL - ABG Interpretation ABG results: ABG ABG pH 7.44 pH Units (7.32-7.45) 07/17/16 11:40 ABG pCO2 50 mmHg (35-45) H 07/17/16 11:40 ABG pO2 137 mmHg (85-104) H 07/17/16 11:40 ABG O2 Saturation 99 % (95-98) H 07/17/16 11:40 PT/INR, D-dimer PT 16.0 Seconds (9.4-12.1) H 07/17/16 11:24 Consult Discharge Plan - Plan Referrals: Jonathon Cruz MD [Primary Care Provider] - 07/26/16 2:00 pm Palliative Quality Palliative Quality: Screen for Code Status: Yes, Screen for Goals of Care: Yes, Screen for Pain: Yes, If Pain Regimen Started, Initiate Bowel Regimen: Yes, Screen for Nausea/Vomitting: Yes Code Status: 07/17/16 17:22 Resuscitation Status: Active [RES] Routine Comment: Resuscitation Status: [id number]
[2016-07-18] MEDS: Doxycycline 100 MG in 0.9 % Sodium Chloride Mini Bag 100 ML IVPB SCH (18:30)
[2016-07-18] MEDS: *HR* Rivaroxaban 10 MG TABLET PO SCH (18:30)
[2016-07-18] MEDS: MethylPREDNISolone 40 MG/ML VIAL IVP SCH (18:30)
[2016-07-19] MEDS: INCRUSE ELLIPTA IH SCH ×2 (00:17→09:42)
[2016-07-19] MEDS: MethylPREDNISolone 40 MG/ML VIAL IVP SCH ×3 (00:19→15:25)
[2016-07-19] MEDS: Ipratropium/Albuterol Neb 3 ML IH SCH ×2 (04:40→10:49)
[2016-07-19 05:49] LABS: Hematocrit 28.5 % (37.5-50.1); Hemoglobin 9.3 g/dL (12.9-16.9); Mean Corpuscular HGB Conc 32.6 g/dL (31.6-35.5); Mean Corpuscular Hemoglobin 31.6 pg (28.0-33.3); Mean Corpuscular Volume 96.9 fL (83.0-100.0); Mean Platelet Volume 8.9 fL (9.4-12.4); Platelet Count 303 K/mcL (140-400); Red Blood Count 2.94 M/mcL (4.19-5.50); Red Cell Distribution Width 14.7 % (11.5-14.5)
[2016-07-19 06:08] LABS: Alanine Aminotransferase 13 Units/L (0-55); Albumin 2.6 g/dL (3.5-5.0); Albumin/Globulin Ratio 0.6 (1.1-2.2); Alkaline Phosphatase 84 Units/L (38-126); Aspartate Amino Transferase 12 Units/L (5-34); BUN/Creatinine Ratio 18 (6-26); Bilirubin,Total 0.3 mg/dL (0.2-1.2); Blood Urea Nitrogen 12 mg/dL (8-26); Carbon Dioxide 25 mEq/L (19-29); Chloride 100 mEq/L (98-109); Globulin 4.1 g/dL (2.4-3.5); Glucose 178 mg/dL (70-99); Osmolality,Calculated 284 (280-300); Potassium 4.5 mEq/L (3.5-4.5); Sodium 135 mEq/L (136-145); Total Protein 6.7 g/dL (6.0-8.3); eGFR For African Americans > 60 (> 60); eGFR For Non-African Americans > 60 (> 60)
[2016-07-19] MEDS: Doxycycline 100 MG in 0.9 % Sodium Chloride Mini Bag 100 ML IVPB SCH (06:27)
[2016-07-19] MEDS: *HR* OxyCODONE Immed Rel 5 MG TABLET PO PRN (06:49)
[2016-07-19] MEDS ORDERED: Tiotropium 18 MCG inhalation IH SCH (07:00)
[2016-07-19] MEDS: *HR* OxyCODONE ER (12 HR) 20 MG TABLET PO SCH (09:42)
[2016-07-19] MEDS: Sennosides 8.6 MG TABLET PO SCH (09:42)
[2016-07-19] MEDS: *HR* Amiodarone 200 MG TABLET PO SCH (09:42)
--- NOTE | 2016-07-19 09:54 | Internal Med Progress Note ---
Date of Encounter: 07/19/16 - Constitutional Vitals: Temp Pulse Resp BP Pulse Ox 97.9 F 81 18 127/61 97 07/19/16 07:32 07/19/16 07:32 07/19/16 07:32 07/19/16 07:32 07/19/16 07:32 General appearance: Present: A&O X 3, pleasant Internal Medicine: Result - Labs CBC & Chem 7: 07/19/16 05:12 07/19/16 05:12 Labs: Short CBC 07/19/16 Range/Units 05:12 WBC 9.9 (4.3-11.1) K/mcL Hgb 9.3 L (12.9-16.9) g/dL Hct 28.5 L (37.5-50.1) % Plt Count 303 (140-400) K/mcL BMP 07/19/16 05:12 Sodium 135 L Potassium 4.5 Chloride 100 Carbon Dioxide 25 BUN 12 Creatinine 0.68 L Glucose 178 H Calcium 9.0 Liver Function 07/19/16 Range/Units 05:12 Total Bilirubin 0.3 (0.2-1.2) mg/dL AST 12 (5-34) Units/L ALT 13 (0-55) Units/L Alkaline Phosphatase 84 (38-126) Units/L Albumin 2.6 L (3.5-5.0) g/dL - ABG Interpretation ABG results: ABG ABG pH 7.44 pH Units (7.32-7.45) 07/17/16 11:40 ABG pCO2 50 mmHg (35-45) H 07/17/16 11:40 ABG pO2 137 mmHg (85-104) H 07/17/16 11:40 ABG O2 Saturation 99 % (95-98) H 07/17/16 11:40 PT/INR, D-dimer PT 16.0 Seconds (9.4-12.1) H 07/17/16 11:24 Consult Discharge Plan - Plan Referrals: Jonathon Cruz MD [Primary Care Provider] - 07/26/16 2:00 pm
[2016-07-19] MEDS: Budesonide/Formoterol 160/4.5 MDI IH SCH (10:49)
--- NOTE | 2016-07-19 11:20 | Palliative Progress Note ---
Date of Encounter: 07/19/16 Time of Encounter: 11:10 - Assessment and plan (1) Cancer associated pain Current Visit: Yes Status: Acute Assessment and plan: Continue on current home regimen (Oxycontin/Oxycodone) which he states works well for him. (2) Constipation due to opioid therapy Current Visit: Yes Status: Acute Assessment and plan: Continues on Senokot. + BM 07/17. (3) Nausea Current Visit: Yes Status: Acute (4) Counseling regarding advanced care planning and goals of care Current Visit: Yes Status: Acute Assessment and plan: Desires to go home and resume [facility] palliative care. He refuses hospice at this point, and desires to f/u with Dr. Parker next week to see if plan for further chemotherapy. State DNR form completed and signed by pt. Copies provided to them. Anticipate D/C today. (5) Acute on chronic respiratory failure with hypoxia Current Visit: Yes Status: Acute (6) Atrial fibrillation with RVR Current Visit: Yes Status: Acute - Time Spent With Patient Total time spent is greater than 50% in coordination of care (as documented) at patient's floor/unit and/or counseling patient: 25 - 35 minutes - Subjective Interval history: Patient awake and alert. Sitting up on side of bed. at bedside. Denies any complaints and anxious to go home. - Constitutional Vitals: Abnormal lab results RBC 2.94 M/mcL (4.19-5.50) L 07/19/16 05:12 Hgb 9.3 g/dL (12.9-16.9) L 07/19/16 05:12 Hct 28.5 % (37.5-50.1) L 07/19/16 05:12 RDW 14.7 % (11.5-14.5) H 07/19/16 05:12 MPV 8.9 fL (9.4-12.4) L 07/19/16 05:12 Lymphocytes # 0.3 K/mcL (0.6-4.6) L 07/18/16 00:37 PT 16.0 Seconds (9.4-12.1) H 07/17/16 11:24 ABG pCO2 50 mmHg (35-45) H 07/17/16 11:40 ABG pO2 137 mmHg (85-104) H 07/17/16 11:40 ABG HCO3 34.0 mEQ/L (21-27) H 07/17/16 11:40 ABG Total CO2 35.5 mEq/L (20-26) H 07/17/16 11:40 ABG O2 Saturation 99 % (95-98) H 07/17/16 11:40 ABG Base Excess 8.6 mEq/L (-2.0 to 3.0) H 07/17/16 11:40 Sodium 135 mEq/L (136-145) L 07/19/16 05:12 Creatinine 0.68 mg/dL (0.72-1.25) L 07/19/16 05:12 Glucose 178 mg/dL (70-99) H 07/19/16 05:12 Albumin 2.6 g/dL (3.5-5.0) L 07/19/16 05:12 Globulin 4.1 g/dL (2.4-3.5) H 07/19/16 05:12 Albumin/Globulin Ratio 0.6 (1.1-2.2) L 07/19/16 05:12 General appearance: Present: no acute distress - Respiratory Respiratory exam: Present: decreased breath sounds - Cardiovascular Cardiovascular exam: Present: irregular rhythm - GI/Abdominal GI/Abdominal exam: Present: normal bowel sounds, soft - Extremities Exam Extremities exam: Present: normal capillary refill, normal inspection - Neurological Exam Neurological exam: Present: alert, oriented X3, strengths equal and symetr throughout - Skin Skin exam: Present: dry, pallor, warm Palliative Quality Palliative Quality: Screen for Code Status: Yes, Screen for Goals of Care: Yes, Screen for Pain: Yes, If Pain Regimen Started, Initiate Bowel Regimen: Yes, Screen for Nausea/Vomitting: Yes Code Status: 07/17/16 17:22 Resuscitation Status: Active [RES] Routine Comment: Resuscitation Status: [id number] - Labs CBC & Chem 7: 07/19/16 05:12 07/19/16 05:12 Labs: Laboratory Results - last 24 hr 07/19/16 07/19/16 05:12 05:12 WBC 9.9 RBC 2.94 L Hgb 9.3 L Hct 28.5 L MCV 96.9 MCH 31.6 MCHC 32.6 RDW 14.7 H Plt Count 303 MPV 8.9 L Sodium 135 L Potassium 4.5 Chloride 100 Carbon Dioxide 25 BUN 12 Creatinine 0.68 L Est GFR ( Amer) > 60 Est GFR (Non-Af Amer) > 60 BUN/Creatinine Ratio 18 Glucose 178 H Calculated Osmolality 284 Calcium 9.0 Total Bilirubin 0.3 AST 12 ALT 13 Alkaline Phosphatase 84 Serum Total Protein 6.7 Albumin 2.6 L Globulin 4.1 H Albumin/Globulin Ratio 0.6 L - ABG Interpretation ABG results: ABG ABG pH 7.44 pH Units (7.32-7.45) 07/17/16 11:40 ABG pCO2 50 mmHg (35-45) H 07/17/16 11:40 ABG pO2 137 mmHg (85-104) H 07/17/16 11:40 ABG O2 Saturation 99 % (95-98) H 07/17/16 11:40 PT/INR, D-dimer PT 16.0 Seconds (9.4-12.1) H 07/17/16 11:24 Consult Discharge Plan - Plan Referrals: Jonathon Cruz MD [Primary Care Provider] - 07/26/16 2:00 pm
[2016-07-19 11:27] VITALS: BP 124/71
--- NOTE | 2016-07-19 14:20 | Discharge Summary ---
<AngieSeferino Dayron - Last Filed: 07/19/16 15:20> Date of Encounter: 07/19/16 Time of Encounter: 10:00 - Discharge Diagnosis (1) Atrial fibrillation with RVR Priority: Primary Status: Acute Comments: -patient back to baseline -controlled on amioderone -discharge with PO amioderone -Cardiology followup (2) Prostate cancer Priority: Primary Status: Chronic Comments: -Is under the management of palliative care - Discharge Medications Prescriptions: Amiodarone [Cordarone] 200 mg PO DAILY #60 tablet Home Medications: Ipratropium/Albuterol Neb [Duoneb] 3 ml IH Q6HR 03/14/15 [History] Magic Mouthwash 5 ml PO Q4H PRN #240 ml 12/30/15 [Rx] Ondansetron HCl [Zofran] 4 mg PO Q6HR PRN #20 tablet 12/30/15 [Rx] Budesonide/Formoterol 160/4.5 [Symbicort 160/4.5] 2 puff IH BIDR 04/17/16 [ History] Oxygen 3 l .ROUTE AD 04/17/16 [History] Umeclidinium [place] [Incruse Ellipta] 1 puff IH BID 04/17/16 [History] OxyCODONE ER (12 HR) [OxyCONTIN] 20 mg PO QID PRN #20 tab.er.12h 04/21/16 [Rx] OxyCODONE Immed Rel [Roxicodone 5 MG] 10 mg PO Q4H PRN #24 tablet 04/21/16 [Rx] Rivaroxaban [Xarelto] 20 mg PO DAILY 30 Days 05/13/16 [Rx] Supplies [SUPPLIES] 1 each .ROUTE DAILY #1 each 05/18/16 [Rx] PredniSONE 10 mg PO DAILY #9 tablet 05/25/16 [Rx] Sennosides [Senna] 8.6 mg PO DAILY #20 tablet 05/25/16 [Rx] Albuterol Sulfate [Ventolin Hfa] 1 puff IH Q6H PRN #1 hfa.aer.ad 07/07/16 [Rx] Amiodarone [Cordarone] 200 mg PO DAILY #60 tablet 07/19/16 [Rx] Allergies/Adverse Reactions: Allergies levofloxacin [From Levaquin] Adverse Reaction (Verified 07/17/16 10:58) Nausea Date of admission: 07/17/16 15:15 Primary care physician: Jonathon Cruz MD Consults: 07/18/16 14:15 Consult to Sheet Taker [CONS] Routine Reason for SW Consult: discharge planning 07/18/16 14:20 Consult to Palliative Care [CONS] Routine Comment: Consulting Provider: Palliative Care [place] Discharging clinician: Seferino Adams Anticipated date of discharge: 07/19/16 - Patient Status Disposition: Home Health Service Condition: Serious Functional capacity at discharge: independent ambulation Overall status at discharge: patient is back to baseline - Discharge Instructions Instructions: Atrial Fibrillation (DC), Chest Pain (DC), Chronic Obstructive Pulmonary Disease (DC) Follow Up With: Jonathon Cruz MD [Primary Care Provider] - 07/26/16 2:00 pm Iris Murguia CNP [Partnered Physician] - Forms: ED Satisfaction Letter Additional Instructions: If you have new or worsening CP/SOB, please return to the ED. Please call ahead of time for cardiology appointment and make sure you followup concerning atrial fib. - Diet and Activity Activity: increase activity as tolerated Diet: advance to your usual diet Interval History: Patient states that he is back to baseline. Denies CP, SOB. cough, hemophysis. He is eating, normal bowel movements. Wants to leave. Does have an oncology appointment with Dr. Sheridan in the next 2 weeks. Lives with and sons. Antibiotics stopped. Patient not having productive cough/fever/COPD exacerbation symptoms. Will not discharge with home abx. Hospital course: Mr. Myers is a 66 year old male Patient presented with chest pain and SOB to the ED. Cardiac workup revealed afib. Patient started on PO amioderone. Patient not RRR and is back to baseline. Time spent discussing smoking cessation with patient: more than 10 minutes - Time Spent with Patient Total time spent providing and/or coordinating discharge services: Less than 30 minutes - Constitutional Vitals: Temp Pulse Resp BP Pulse Ox 97.8 F 82 83 124/71 96 07/19/16 11:00 07/19/16 11:00 07/19/16 11:00 07/19/16 11:00 07/19/16 11:00 General appearance: Present: A&O X 3, pleasant - Respiratory Respiratory exam: Present: wheezes (chonic problem ) - Cardiovascular Cardiovascular exam: Present: RRR - Neurological Exam Neurological exam: Present: alert, oriented X3 - Psychiatric Psychiatric exam: Present: normal affect, normal mood <Andre Goldman - Last Filed: 07/19/16 16:14> Date of Encounter: 07/19/16 - Discharge Diagnosis (1) Afib Priority: Primary Status: Acute Qualifiers: Atrial fibrillation type: paroxysmal Qualified Code(s): I48.0 - Paroxysmal atrial fibrillation (2) Chest pain Priority: Secondary Status: Acute Qualifiers: Chest pain type: chest pain on breathing Qualified Code(s): R07.1 - Chest pain on breathing (3) Recurrent lung squamous cell carcinoma Priority: Secondary Status: Chronic Qualifiers: Laterality: unspecified laterality Qualified Code(s): C34.90 - Malignant neoplasm of unspecified part of unspecified bronchus or lung (4) COPD (chronic obstructive pulmonary disease) Status: Chronic Qualifiers: COPD type: emphysema Emphysema type: other Qualified Code(s): J43.8 - Other emphysema (5) Prostate cancer Status: Chronic (6) Chronic respiratory failure with hypoxia Status: Acute Date of admission: 07/17/16 15:15 Primary care physician: Jonathon Cruz MD Consults: 07/18/16 14:15 Consult to Sheet Taker [CONS] Routine Reason for SW Consult: discharge planning 07/18/16 14:20 Consult to Palliative Care [CONS] Routine Comment: Consulting Provider: Palliative Care [facility] course: Mr. Myers is a 66 year old male - Time Spent with Patient Total time spent providing and/or coordinating discharge services: 39min with examining patient and reviewing data. - Constitutional Vitals: Temp Pulse Resp BP Pulse Ox 97.8 F 82 83 124/71 96 07/19/16 11:00 07/19/16 11:00 07/19/16 11:00 07/19/16 11:00 07/19/16 11:00 - Attending Attestation I examined this patient and my medical decision-making was reviewed with the Resident Physician. I agree with the documented findings, disposition and treatment plan as described except to the extent set forth below. Mr. Myers feels "great." Wants to shower and ready to go home. Exam Alert. Comfortable Heart reg Lungs clear currently Plan D/C today.
--- NOTE | 2016-07-19 15:07 | Physician Discharge Referral ---
<ElizabethSeferino Dayron - Last Filed: 07/19/16 15:04> Home Health/Hosp Referral Info Transfer to: Home Health Attending Provider: elizabeth Provider in Charge Post Discharge: PCP - Diagnosis (1) Atrial fibrillation with RVR Priority: Primary Status: Acute (2) Prostate cancer Priority: Primary Status: Chronic (3) Lung cancer Priority: Primary Status: Chronic - Respiratory Orders Oxygen / L per min (4) Smoking Cessation: Smoking cessation has been advised. For more information, call the [employer] Quit Line at 1-923-WVYG-NOW. - Dressing/Wound Care Site: none - Diet/Nutrition Diet/Nutrition Orders: Regular - Activity Activity Orders: Up ad francisca - Services Needed Following services are medically necessary services: Home Health Aide Home Care Orders: Please check up on patient concerning afib. Able to get and take his medicine. Any new symptoms such as chest pain, palpitations, shortness of breath. - Transfer Medications Prescriptions: Amiodarone [Cordarone] 200 mg PO DAILY #60 tablet Home Medications: Ipratropium/Albuterol Neb [Duoneb] 3 ml IH Q6HR 03/14/15 [History] Magic Mouthwash 5 ml PO Q4H PRN #240 ml 12/30/15 [Rx] Ondansetron HCl [Zofran] 4 mg PO Q6HR PRN #20 tablet 12/30/15 [Rx] Budesonide/Formoterol 160/4.5 [Symbicort 160/4.5] 2 puff IH BIDR 04/17/16 [ History] Oxygen 3 l .ROUTE AD 04/17/16 [History] Umeclidinium [place] [Incruse Ellipta] 1 puff IH BID 04/17/16 [History] OxyCODONE ER (12 HR) [OxyCONTIN] 20 mg PO QID PRN #20 tab.er.12h 04/21/16 [Rx] OxyCODONE Immed Rel [Roxicodone 5 MG] 10 mg PO Q4H PRN #24 tablet 04/21/16 [Rx] Rivaroxaban [Xarelto] 20 mg PO DAILY 30 Days 05/13/16 [Rx] Supplies [SUPPLIES] 1 each .ROUTE DAILY #1 each 05/18/16 [Rx] PredniSONE 10 mg PO DAILY #9 tablet 05/25/16 [Rx] Sennosides [Senna] 8.6 mg PO DAILY #20 tablet 05/25/16 [Rx] Albuterol Sulfate [Ventolin Hfa] 1 puff IH Q6H PRN #1 hfa.aer.ad 07/07/16 [Rx] Amiodarone [Cordarone] 200 mg PO DAILY #60 tablet 07/19/16 [Rx] Allergies/Adverse Reactions: Allergies levofloxacin [From Levaquin] Adverse Reaction (Verified 07/17/16 10:58) Nausea Certification: Further, I certify that my clinical findings support that this patient is homebound (i.e. absences from home require considerable and taxing effort and are for medical reasons or catholic services or infrequently or short duration when for other reasons) because: Homebound Reason: Patient requires assistance of a person or device to safely leave home, Severity of cardiac or pulmonary status limits activity tolerance Attestation: My signature below is to certify that this patient is under my care and that I, or nurse practitioner, or a physician's data control assistant working with me, has a face-to -face encounter with this patient. <Andre Goldman - Last Filed: 07/19/16 16:01> - Respiratory Orders Smoking Cessation: Smoking cessation has been advised. For more information, call the [place] [employer] Quit Line at 9-079-FHQY-NOW. - Services Needed Following services are medically necessary services: Nursing Certification: Further, I certify that my clinical findings support that this patient is homebound (i.e. absences from home require considerable and taxing effort and are for medical reasons or catholic services or infrequently or short duration when for other reasons) because: Attestation: My signature below is to certify that this patient is under my care and that I, or nurse practitioner, or a physician's data control assistant working with me, has a face-to -face encounter with this patient.
== END 2016-07-19 16:10 | disposition home health service (06) ==
LOC: EMEROO 10:53 → 2NENU 10:53 → SUATTDRO 15:15 → 2NENU 16:02
PROVIDERS: ADMIT Nurse Practitioner Acute Care; ATTEND Internal Medicine